=== PATIENT | female | born 1970 | race Two or more races ===

== ENCOUNTER 2020-01-07 15:24 | Emergency (ER) | payer SELFPAY ==
[~2020-01-07] VITALS: Ht 160 cm; Wt 56.7 kg
--- NOTE | 2020-01-07 15:47 | NUR ---
DR TERAN AT BEDSIDE FOR EVAL.
[2020-01-07] MEDS ORDERED: ACETAMINOPHEN ES 500 MG TABLET ONE (15:50)
[2020-01-07] MEDS ORDERED: IBUPROFEN 600 MG TABLET PO ONE (15:50)
--- NOTE | 2020-01-07 15:53 | NUR ---
PT TO RADIOLOGY FOR HEAD AND C SPINE CT SCAN VIA [facility].
[2020-01-07] MEDS ORDERED: ACETAMINOPHEN 325 MG TABLET PO ONE (16:00)
[2020-01-07] MEDS ORDERED: IBUPROFEN 400 MG TABLET PO ONE (16:00)
--- NOTE | 2020-01-07 16:45 | NUR ---
Patient discharged to home in stable condition. Written and verbal after care instructions given. Patient verbalizes understanding of instruction.
[2020-01-07 16:46] VITALS: BP 125/72
== END 2020-01-07 16:47 | disposition home or self-care (01) ==
LOC: ER 15:25
DX: S16.1XXA Strain of muscle, fascia and tendon at neck level, initial encounter (principal); S80.12XA Contusion of left lower leg, initial encounter; V49.49XA Driver injured in collision with other motor vehicles in traffic accident, initial encounter; Y93.89 Activity, other specified; Y92.488 Other paved roadways as the place of occurrence of the external cause; Y99.8 Other external cause status
CPT/HCPCS: 70450-TC; 72125-TC